=== PATIENT | female | born 1950 | race Caucasian/White ===

== ENCOUNTER 2016-11-22 13:04 | Emergency (ER) | payer BC ==
[~2016-11-22] VITALS: Ht 160 cm; Wt 81.6 kg
--- NOTE | 2016-11-22 13:50 | NUR ---
DR WINTERS AT THE BEDSIDE FOR EVAL AND EXAM.
--- NOTE | 2016-11-22 15:03 | NUR ---
Patient discharged to home in stable conditon. Written and verbal after care instructions given. Patient verbalizes understanding of instructions.
[2016-11-22 15:04] VITALS: BP 105/86
== END 2016-11-22 15:07 | disposition home or self-care (01) ==
LOC: ER 13:04
DX: S60.212A Contusion of left wrist, initial encounter (principal); S60.211A Contusion of right wrist, initial encounter; S80.211A Abrasion, right knee, initial encounter; Z85.3 Personal history of malignant neoplasm of breast; W01.0XXA Fall on same level from slipping, tripping and stumbling without subsequent striking against object, initial encounter; Y93.89 Activity, other specified; Y92.9 Unspecified place or not applicable; Y99.9 Unspecified external cause status
CPT/HCPCS: 73110 ×2; 73564; 99284; A4663